=== PATIENT | male | born 2000 | race Caucasian/White ===

== ENCOUNTER 2024-08-07 04:54 | Inpatient (IN) | payer OTHER ==
[~2024-08-07] VITALS: Ht 162.6 cm; Wt 71.7 kg
[2024-08-07 06:18] LABS: COVID AG,FIA SOURCE NASAL SWAB
[2024-08-07 06:48] LABS: AMPHET/METH SCREEN,URINE POSITIVE (NEGATIVE); BARBITURATE SCREEN, URINE NEGATIVE (NEGATIVE); BENZODIAZEPINES SCREEN,URINE NEGATIVE (NEGATIVE); CANNABINOID SCREEN,URINE NEGATIVE (NEGATIVE); COCAINE SCREEN,URINE NEGATIVE (NEGATIVE); METHADONE SCREEN, URINE NEGATIVE (NEGATIVE); OPIATE SCREEN,URINE NEGATIVE (NEGATIVE); PHENCYCLIDINE SCREEN,URINE NEGATIVE (NEGATIVE)
[2024-08-07 06:51] LABS: ALCOHOL, URINE DRUG SCREEN NEGATIVE (NEGATIVE)
[2024-08-07 06:53] LABS: PH,URINE DRUG SCREEN 7.5 (5.0-8.0)
[2024-08-07 07:13] LABS: SARS-COV2 (COVID) ANTIGEN,FIA Negative (Negative)
[2024-08-07 07:26] LABS: BASOPHILS % (AUTO) 0.3 % (0.0-2.0); EOSINOPHILS % (AUTO) 1.2 % (1.0-6.0); HEMATOCRIT 46.7 % (41-53); HEMOGLOBIN 16.2 g/dL (13.5-17.5); LYMPHOCYTES # (AUTO) 1.6 K/uL (1.0-4.8); LYMPHOCYTES % (AUTO) 19.3 % (22.0-44.0); MEAN CORPUSCULAR HEMOGLOBIN 31.5 pg (26.0-34.0); MEAN CORPUSCULAR HGB CONC 34.7 G/dL (31.0-37.0); MEAN CORPUSCULAR VOLUME 91 fL (80-100); MONOCYTES # (AUTO) 0.6 K/uL (0.1-1.0); MONOCYTES % (AUTO) 6.6 % (2.0-9.0); NEUTROPHILS # (AUTO) 6.2 K/uL (1.8-7.7); NEUTROPHILS % (AUTO) 72.6 % (40.0-70.0); PLATELET COUNT (AUTO) 267 K/uL (150-450); RED BLOOD CELL COUNT(AUTO) 5.15 MIL/uL (4.50-5.90); RED CELL DISTRIBUTION WIDTH 13.4 % (11.5-14.5); WHITE BLOOD COUNT (AUTO) 8.5 K/uL (4.5-11.0)
[2024-08-07 08:01] LABS: ANION GAP 14 mmol/L (8-16); CALCIUM, TOTAL 9.7 mg/dL (8.8-10.5); CARBON DIOXIDE 22 mmol/L (22-29); CHLORIDE 101 mmol/L (98-107); CREATINE KINASE, TOTAL ONLY 232 U/L (39-308); CREATININE 1.06 mg/dL (0.60-1.30); GLOMERULAR FILTR. RATE CALC > 60 mL/min (>60); GLUCOSE,RANDOM 94 mg/dL (70-110); SODIUM SERUM 137 mmol/L (136-145); UREA NITROGEN, BLOOD 11 mg/dL (7-18)
[2024-08-07 08:04] LABS: TROPONIN I-HIGH SENSITIVITY 7 ng/L (<76)
[2024-08-07 08:10] LABS: ALCOHOL, BLOOD (SERUM) < 3 mg/dL (0-10)
[2024-08-07] MEDS ORDERED: ZOLPIDEM TARTRATE 5 MG TABLET PO PRN (09:15)
[2024-08-07] MEDS ORDERED: MAGNESIUM HYDROXIDE SUSPENSION 30 ML UDCUP PO PRN (09:15)
[2024-08-07] MEDS ORDERED: POTASSIUM CHL 10 MEQ/WATER 50 ML IV PRN (09:15)
[2024-08-07] MEDS ORDERED: LORazepam 2 MG/ML VIAL IVP PRN (09:15)
[2024-08-07 09:38] LABS: APPEARANCE,URINE CLEAR (CLEAR); BILIRUBIN,URINE NEGATIVE (NEGATIVE); COLOR,URINE LIGHT YELLOW (YELLOW); GLUCOSE, URINE (UA) NEGATIVE (NEGATIVE); KETONES,URINE TRACE mg/dL (NEGATIVE); LEUKOCYTE ESTERASE ,URINE NEGATIVE (NEGATIVE); NITRATE,URINE NEGATIVE (NEGATIVE); OCCULT BLOOD,URINE NEGATIVE (NEGATIVE); PH,URINE 7.5 (5.0-8.0); PROTEIN,URINE NEGATIVE (NEGATIVE); SPECIFIC GRAVITIY, URINE 1.007 (1.003-1.030); UROBILINOGEN,URINE <=1.0 mg/dL (<=1.0)
[2024-08-07] MEDS: POTASSIUM CHLORIDE 20 MEQ ER TABLET PO PRN (09:47)
[2024-08-07] MEDS: SODIUM CHLORIDE 0.9% 1,000 ML IV ONE (09:47)
[2024-08-07 13:13] VITALS: BP 131/96; PULSE 85; RESP 19; TEMP 98.3; O2SAT 98
[2024-08-07 22:57] VITALS: BP 151/89; PULSE 106; RESP 18; TEMP 97.9; O2SAT 97
[2024-08-07] MEDS: ACETAMINOPHEN 325 MG TABLET PO PRN (23:03)
[2024-08-08 00:12] VITALS: BP 145/85; PULSE 100; RESP 18; TEMP 98; O2SAT 98
[2024-08-08 06:11] VITALS: BP 127/74; PULSE 78; RESP 18; TEMP 98.2; O2SAT 96
[2024-08-08 09:00] VITALS: BP 105/61; PULSE 87; RESP 18; TEMP 97.9; O2SAT 98
[2024-08-08] MEDS: FAMOTIDINE 20 MG TABLET PO SCH (09:28)
[2024-08-08] MEDS: SODIUM CHLORIDE 0.9% 1,000 ML IV ONE (11:30)
[2024-08-08 12:31] VITALS: BP 121/76; PULSE 76; RESP 18; TEMP 98; O2SAT 97
[2024-08-08 15:51] VITALS: BP 124/96; PULSE 75; RESP 18; TEMP 97.7; O2SAT 99
[2024-08-08 19:50] VITALS: BP 116/60; PULSE 59; RESP 18; TEMP 97.9; O2SAT 99
[2024-08-09 05:22] VITALS: BP 118/79; PULSE 60; RESP 18; TEMP 97.7; O2SAT 99
[2024-08-09 08:19] VITALS: BP 114/61; PULSE 58; RESP 18; TEMP 97.5; O2SAT 100
[2024-08-09 15:22] VITALS: BP 119/68; PULSE 56; RESP 18; TEMP 98.5; O2SAT 96
== END 2024-08-09 20:05 | DRG 641 ==
LOC: EMS 04:54 → EDH 09:52 → 5S 13:01 → 6S 08-08 15:40
PROVIDERS: ADMIT Internal Medicine; ATTEND Internal Medicine
DX: E87.6 Hypokalemia (principal); Z20.822 Contact with and (suspected) exposure to COVID-19; F15.10 Other stimulant abuse, uncomplicated; F10.90 Alcohol use, unspecified, uncomplicated
CPT/HCPCS: 71045; 80048; 80307; 81003; 82550; 84132; 84484; 85025; 93005; 99285; G0480; J7030; 36415-L1; 36415-TC